=== PATIENT | male | born 1955 | race Caucasian/White ===

== ENCOUNTER 2024-01-27 06:01 | Observation (INO) ==
[~2024-01-27 06:01] MED LIST: Naloxone 0.4 mg VIAL 0.4 mg/ml 1 ml VIAL IV PRN; Ondansetron 4 mg VIAL 2 MG/ML 2 ml VIAL IV PRN
[2024-01-27] MEDS ORDERED: Midazolam 2 mg/2 ml VIAL 1 mg/ml 2 ml VIAL (2 mg) ONE (06:23)
[2024-01-27] MEDS ORDERED: Rocuronium 50 mg VIAL 10 mg/ml 5 ml VIAL (50 mg) ONE ×2 (06:23→09:02)
[2024-01-27] MEDS ORDERED: Ondansetron 4 mg VIAL 2 MG/ML 2 ml VIAL ONE (06:23)
[2024-01-27] MEDS ORDERED: Propofol 10 MG/ML 20 ML BTL ONE (06:23)
[2024-01-27] MEDS ORDERED: Lidocaine 2% PF 5 ML VIAL ONE (06:23)
[2024-01-27] MEDS ORDERED: Dexamethasone IV 4 MG/ML VIAL 1 ml VIAL ONE (06:23)
[2024-01-27] MEDS ORDERED: Sevoflurane BOTTLE ONE (06:27)
[2024-01-27] MEDS ORDERED: ceFAZolin 2 GM PREMIX 2 GM/50 ML BAG ONE (07:12)
[2024-01-27] MEDS ORDERED: fentaNYL 250 mcg/5 ml 50 MCG/ML 5 ml VIAL (250 MCG) ONE (07:17)
[2024-01-27] MEDS ORDERED: Bupivacaine 0.25% SDV 30 ML ONE (07:25)
[2024-01-27 07:37] LABS: Rapid COVID-19 Molecular Undetected (Undetected)
[2024-01-27] MEDS ORDERED: Ondansetron 4 mg VIAL 2 MG/ML 2 ml VIAL IV PRN (07:41)
[2024-01-27] MEDS ORDERED: Phenylephrine 40 mcg/mL 10mL (400mcg) SYRINGE ONE (08:21)
[2024-01-27] MEDS: Buffered Lidocaine 1% SYRIN 1 ml INTRADERM ONE (11:20)
[2024-01-27] MEDS: NS 0.9% 1000 ml BAG 1,000 ML IV SCH (11:20)
[2024-01-27] MEDS: Lactated Ringers 1000 ml BAG 1,000 ML IV SCH ×2 (11:20→16:19)
[2024-01-27] MEDS: Neomycin/Polym/Bacit TOP OINT 15 GM TOPICAL SCH (11:46)
[2024-01-27] MEDS: Magnesium Hydroxide LIQ 30 ML UDC PO SCH (11:46)
[2024-01-27 11:59] LABS: ABS Lymphocytes 1.7 10^3/uL (1.0-4.8); ABS Monocytes 0.4 10^3/uL (0.0-1.1); ABS Nucleated RBC 0.01 10^3/ul; Hematocrit 48.7 % (38-53); Lymphocyte % 10.8 %; Mean Corpuscular Hemoglobin 29.6 pg (27-33); Mean Corpuscular Hgb Conc 32.8 g/dL (31-36); Mean Corpuscular Volume 90.3 fL (80-97); Mean Platelet Volume 8.1 fL (7.5-11.2); Platelet Count 213 10^3/uL (150-450); Red Blood Count 5.39 10^6/uL (4.06-5.63); Red Cell Distribution Width 13.7 % (12-17); White Blood Count 16.2 10^3/uL (3.6-10.2)
[2024-01-27] MEDS ORDERED: fentaNYL 100 mcg/2 ml 50 MCG/ML VIAL ONE ×2 (12:04→12:49)
[2024-01-27] MEDS: fentaNYL 100 mcg/2 ml 50 MCG/ML VIAL IV PRN (12:08)
[2024-01-27 12:30] LABS: Calcium 8.5 mg/dL (8.6-10.3); Creatinine, Serum 1.27 mg/dL (0.67-1.17); Potassium 4.9 mmol/L (3.5-5.0); eGFR CKD-EPI 60.8 (>60)
[2024-01-27] MEDS: BUPIVACAINE **LIPOSOME/PF 13.3 MG/ML (266MG/ 20ML) VIAL (RESTRICTED) INFIL ONE (12:49)
[2024-01-27] MEDS ORDERED: Morphine 4 MG/ML VIAL (1 ml) ONE (13:13)
[2024-01-27] MEDS: Morphine 10 MG/ML VIAL (1 ml) IV PRN (13:15)
[2024-01-27] MEDS ORDERED: Dextrose 50% Syringe 50 ml 25 GM/50 ML SYRINGE IV PUSH PRN (13:58)
[2024-01-28 08:48] LABS: ABS Lymphocytes 2.1 10^3/uL (1.0-4.8); ABS Monocytes 1.4 10^3/uL (0.0-1.1); ABS Neutrophils 8.5 10^3/uL (1.5-7.6); ABS Nucleated RBC 0.01 10^3/ul; Eosinophil % 0.1 %; Hemoglobin 14.9 g/dL (13.2-16.3); Lymphocyte % 17.4 %; Mean Corpuscular Hemoglobin 29.7 pg (27-33); Mean Corpuscular Volume 89.9 fL (80-97); Mean Platelet Volume 8.6 fL (7.5-11.2); Nucleated Red Blood Cells % 0.1 %/100WBC (0.0-0.8); Platelet Count 182 10^3/uL (150-450); Red Blood Count 5.01 10^6/uL (4.06-5.63); Red Cell Distribution Width 13.7 % (12-17)
[2024-01-28 09:08] LABS: Calcium 8.7 mg/dL (8.6-10.3); Creatinine, Serum 1.59 mg/dL (0.67-1.17); Potassium 4.1 mmol/L (3.5-5.0); eGFR CKD-EPI 46.4 (>60)
[2024-01-28 10:13] VITALS: BP 134/73
== END 2024-01-28 13:10 | disposition home or self-care (01) ==
LOC: SSU 06:01 → OR 06:01
PROVIDERS: ADMIT Urology; ATTEND Urology